=== PATIENT | female | born 1975 | race Caucasian/White ===

== ENCOUNTER 2020-08-21 10:43 | Outpatient (CLI) | payer OTHER, SELFPAY | END 2020-08-21 10:44 | disposition home or self-care (01) | LOC: ANHAUDIO 10:44 | PROVIDERS: PCP Internal Medicine; Visit Provider Otolaryngology | DX: R42 Dizziness and giddiness (principal); H93.12 Tinnitus, left ear; H90.3 Sensorineural hearing loss, bilateral | CPT/HCPCS: 92557; 92567 ==

== ENCOUNTER 2020-08-28 16:58 | Outpatient (CLI) | payer OTHER, SELFPAY ==
--- NOTE | ~2020-08-28 | US_ITS ---
EXAMINATION: US thyroid DATE: 08/28/2020 17:41 INDICATION: Hypothyroidism. TECHNIQUE: Multiple ultrasound images of the thyroid were obtained. COMPARISON: Ultrasound 07/26/2014 FINDINGS: The right thyroid lobe measures 3.9 x 1.2 x 1.3 cm. The left thyroid lobe measures 3.3 x 1.0 x 1.2 c m. The thyroid demonstrates diffusely heterogeneous echogenicity and increased vascularity. No discr ete nodule. IMPRESSION: 1. Heterogeneous, hypervascular thyroid, consistent with chronic lymphocytic (Bandar) thyroiditis. Reviewed, dictated and finalized at location A. 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 Heterogeneous, hypervascular thyroid, consistent with chronic lymphocytic (H ashimoto) thyroiditis.
== END 2020-08-28 16:59 | disposition home or self-care (01) ==
PROVIDERS: PCP Internal Medicine; Visit Provider Nurse Practitioner
DX: E03.9 Hypothyroidism, unspecified (principal)
CPT/HCPCS: 76536

== ENCOUNTER 2020-09-09 14:49 | Outpatient (CLI) | payer OTHER, SELFPAY ==
--- NOTE | ~2020-09-09 | MR_ITS ---
EXAMINATION: MR IAC wo/w con EXAM DATE: 09/09/2020 16:15 INDICATION: Sensory neural hearing loss. TECHNIQUE: Multi-sequential, multiplanar MR images of the brain, brainstem, internal auditory canals were obtained without contrast. Whole brain sagittal T1, axial diffusion, gradient echo (T2*), T1, T 2, FLAIR sequences obtained. High resolution coronal 3-D FIESTA, coronal T1 FSE, axial T1 FSPGR of t he internal auditory canals. Patient was then injected with 10 cc Multihance contrast intravenously. Postcontrast axial and coronal T1 weighted whole brain, axial and coronal high resolution T1 IAC seq uences obtained. Correlation is made to head CT 05/18/2020. FINDINGS: No evidence of mastoid or middle ear opacification. The 7th/8th cranial nerve complexes a re symmetric, normal in course and caliber. No cerebellopontine angle masses. Posterior fossa unrem arkable. There are no areas of restricted diffusion to suggest acute infarction. There is no acute hemorrhage seen on the T2*, a hemosiderin sensitive sequence. No intraparenchymal brain mass. The ventricles a re normal in size. There are no extra-axial collections. Flow voids are seen in the cerebral arteri es on the T2-weighted sequences consistent with their expected patency. The orbits are unremarkable. Soft tissue is unremarkable. There are no areas of abnormal enhancement on the postcontrast image s. IMPRESSION: 1. Unremarkable brain/IAC MRI examination. 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
[2020-09-09 15:25] LABS: Estimated Glomerular Filt Rate > 60
== END 2020-09-09 14:50 | disposition home or self-care (01) ==
PROVIDERS: PCP Internal Medicine; Visit Provider Otolaryngology
DX: H90.5 Unspecified sensorineural hearing loss (principal)
CPT/HCPCS: 70553; A9577

== ENCOUNTER 2020-09-27 11:58 | Outpatient (NON) | payer OTHER, SELFPAY ==
[2020-09-27 14:31] LABS: Influenza Control Positive
[2020-09-28 00:20] LABS: SARS-CoV-2 RNA PCR Negative
== END 2020-09-27 11:59 ==
LOC: ANHCOVIDDT 12:00
PROVIDERS: PCP Internal Medicine; Visit Provider Nurse Practitioner
DX: R05 Cough (principal); Z20.828 Contact with and (suspected) exposure to other viral communicable diseases
CPT/HCPCS: 87635; 87804; C9803; U0003

== ENCOUNTER 2022-04-17 08:09 | Outpatient (CLI) | payer OTHER, SELFPAY ==
--- NOTE | ~2022-04-17 | US_ITS ---
EXAMINATION: US thyroid DATE: 04/17/2022 08:34 INDICATION: Hypothyroidism TECHNIQUE: Multiple ultrasound images of the thyroid were obtained. COMPARISON: None. FINDINGS: The right thyroid lobe measures 3.9 x 1.0 x 1.2 cm. The left thyroid lobe measures 3.3 x 1.1 x 1.2 c m. Diffuse heterogeneous decreased echogenicity with coarsened echotexture and increased vascular fl ow on color Doppler throughout both the left and right thyroid lobes. No discrete thyroid nodules. IMPRESSION: 1. No interval change in a heterogeneous hypervascular thyroid consistent with chronic lymphocytic (H ashimoto) thyroiditis. Reviewed, dictated and finalized at location D. IMPRESSION: 1. No interval change in a heterogeneous hypervascular thyroid consistent with chronic lymphocytic (Bandar) thyroiditis.
== END 2022-04-17 08:10 | disposition home or self-care (01) ==
PROVIDERS: PCP Internal Medicine; Visit Provider Clinical Nurse Specialist
DX: E03.9 Hypothyroidism, unspecified (principal)
CPT/HCPCS: 76536

== ENCOUNTER 2022-09-18 09:25 | Emergency (ER) | payer OTHER, SELFPAY ==
[2022-09-18 09:47] VITALS: BP 119/87; PULSE 101; RESP 20; TEMP 36.4; O2SAT 99
--- NOTE | 2022-09-18 10:07 | ED.URI ---
HPI - URI/Sore Throat General Chief Complaint: Headache Stated Complaint: headache,body aches Time Seen by Provider: 09/18/22 10:21 Source: patient and RN notes reviewed Mode of arrival: ambulatory Limitations: no limitations History of Present Illness HPI Narrative: 47-year-old female presents with concern for headache, body aches, chills, nasal congestion, rhinorrhea, cough. Reports symptoms started on Wednesday night in the middle night. She reports she has been taking Tylenol ibuprofen elicited complaint: other (Headaches, body aches) Related Data Allergies Allergy/AdvReac Type Severity Reaction Status Date / Time hydromorphone AdvReac Intermediate THROAT Verified 09/18/22 10:03 FEELS LIKE ITS SWELLING HYDROCODONE BIT Allergy Unknown VOMITING Uncoded 09/18/22 10:03 Review of Systems Review of Systems: CONSTITUTIONAL: Reports malaise, chills, sweats EYES: Denies visual changes, redness, or discharge. ENT: Reports rhinorrhea, congestion, otalgia and sore throat. CARDIOVASCULAR: Denies chest pain, palpitations, or edema. RESPIRATORY: Reports cough. Denies dyspnea. GASTROINTESTINAL: Denies abdominal pain, nausea, vomiting, diarrhea SKIN: Denies rash or itching. MUSCULOSKELETAL: Reports myalgia. NEUROLOGIC: Reports Headache. All systems reviewed & are unremarkable except as noted in HPI and below PMFSH Past Medical History Medical History delivery delivered x2 Chicken pox Depression HTN (hypertension) Hx of migraine headaches Hypercholesterolemia Hypocalcemia Hypothyroidism, acquired Pericardial cyst Surgical History Surgical History H/O prior ablation treatment H/O tubal ligation 1997 History of robot-assisted laparoscopic hysterectomy Family History Family History Daughter Cerebral palsy Father Heart disease Mother Family history of thyroid problem Social History Social History Smoking packs per day: 1 Smoking cigarettes per day: 20.0 Smoking status: Never smoker Alcohol intake: never Comments At time of signature, agree with nursing past medical, surgical, social and family history. There is no relevant family history pertinent to the presenting complaint Exam Narrative: GENERAL: Well-appearing, well-nourished, and in no acute distress. HEAD: Normocephalic EYES: PERRLA, conjunctivae clear ENT: Nares clear, turbinates edematous and erythematous, clear discharge. Mucous membranes moist. TM pearly oneal with dull light reflex bilaterally; no tragal tenderness. Oropharynx not erythematous without lesions. Tonsils not enlarged and without exudate, no drooling, no hoarseness, no trismus, uvula midline. NECK: Supple. No lymphadenopathy CHEST: Clear to auscultation, breath sounds equal. No wheezing, rhonchi, rales, or stridor. No respiratory distress, speaks in full sentences. HEART: Regular rate and rhythm. No murmur heard. SKIN: Warm, dry, no rash. NEURO: Alert and oriented x3. PSYCH: Normal mood and affect Course Course Emergency Course: Patient is aware of diagnosis, understands and agrees to treatment plan. Anticipatory guidance given. Patient agrees to follow-up as directed and is aware of reasons to seek care at the emergency department. Portions of this record may have been created with voice recognition software Level of Care: Express Care Visit Vital Signs Vital signs: Vital Signs Temperature 97.5 F L 09/18/22 09:47 Pulse Rate 101 H 09/18/22 09:47 Respiratory Rate 20 09/18/22 09:47 Blood Pressure 119/87 09/18/22 09:47 Pulse Oximetry 99 09/18/22 09:47 Temperature 97.5 F L 09/18/22 09:47 Pulse Rate 101 H 09/18/22 09:47 Respiratory Rate 20 09/18/22 09:47 Blood Pressure 119/87 09/18/22 09:47 Pulse Ox
== END 2022-09-18 10:39 | disposition home or self-care (01) ==
PROVIDERS: Emergency Provider Nurse Practitioner; PCP Internal Medicine
DX: U07.1 COVID-19 (principal); I10 Essential (primary) hypertension; E78.00 Pure hypercholesterolemia, unspecified; E03.9 Hypothyroidism, unspecified
CPT/HCPCS: 87426; 87804; 99213; C9803; G0463

== ENCOUNTER 2022-10-07 12:01 | Emergency (ER) | payer OTHER, SELFPAY ==
[2022-10-07 12:09] VITALS: BP 102/86; PULSE 91; RESP 16; TEMP 36.3; O2SAT 100
--- NOTE | 2022-10-07 12:19 | ED.BACK ---
HPI - Back Pain/Injury General Chief Complaint: Back Pain/Injury Stated Complaint: lower back pain Time Seen by Provider: 10/07/22 12:10 Source: patient Mode of arrival: ambulatory Limitations: no limitations History of Present Illness HPI Narrative: Mandy is a 47-year-old female patient presenting to the clinic today with complaints of left mid to upper back pain. She reports she lifted a 40 lb bag of dog food at [employer] while at work 2 days ago and felt as though she strained her back. She states that the pain was worse yesterday so she called off work and also had some diarrhea. States she is having difficulty lifting items with her left hand due to the discomfort. Feels as though she is having spasm Related Data Allergies Allergy/AdvReac Type Severity Reaction Status Date / Time hydromorphone AdvReac Intermediate THROAT Verified 10/07/22 12:33 FEELS LIKE ITS SWELLING HYDROCODONE BIT Allergy Unknown VOMITING Uncoded 10/07/22 12:33 Review of Systems Review of Systems: Pertinent positives per HPI. Patient denies any fever, chills, rash, headache, visual changes, dizziness, cough, runny nose, sore throat, shortness of breath, chest pain, palpitations, nausea, vomiting, diarrhea, constipation, abdominal pain, or any urinary issues. [facility] Past Medical History Medical History delivery delivered x2 Chicken pox Depression HTN (hypertension) Hx of migraine headaches Hypercholesterolemia Hypocalcemia Hypothyroidism, acquired Pericardial cyst Surgical History Surgical History H/O prior ablation treatment H/O tubal ligation 1997 History of robot-assisted laparoscopic hysterectomy Family History Family History Daughter Cerebral palsy Father Heart disease Mother Family history of thyroid problem Social History Social History Smoking packs per day: 1 Smoking cigarettes per day: 20.0 Smoking status: Never smoker Alcohol intake: never Comments At the time of my signature, I reviewed and agree with the nursing past medical, surgical, social, and family history. There is no relevant family history pertinent to the patient complaint. Exam Narrative: General: Well-developed, well nourished, in no apparent distress Head: Normocephalic, atraumatic. Cardio: Regular rate and rhythm, s1 and s2 normal, no murmur appreciated. Resp: Clear to auscultation bilaterally, no rhonchi, rales, wheezing or rubs. Musculoskeletal: No deformity, tender to palpation over the left infraspinatus and rhomboid musculature, has pain over the infraspinatus and rhomboid muscle when lifting arm against resistance, grossly normal range of motion, muscle strength strong and equal, peripheral pulse strong, no edema, no cyanosis, normal gait and station Course Course Emergency Course: Portions of this record may have been created with voice recognition software. Level of Care: Express Care Visit Vital Signs Vital signs: Vital Signs Temperature 36.3 C L 10/07/22 12:09 Pulse Rate 91 10/07/22 12:09 Respiratory Rate 16 10/07/22 12:09 Blood Pressure 102/86 10/07/22 12:09 Pulse Oximetry 100 10/07/22 12:09 Temperature 36.3 C L 10/07/22 12:09 Pulse Rate 91 10/07/22 12:09 Respiratory Rate 16 10/07/22 12:09 Blood Pressure 102/86 10/07/22 12:09 Pulse Oximetry 100 10/07/22 12:09 Vital signs reviewed MDM - Back Pain/Injury MDM Narrative Medical decision making narrative: At the time of visit patient is resting comfortably on the exam table. I suspect patient has a sprain of the infraspinatus and rhomboid musculature on the left. Send in prescription for naproxen and some Flexeril. Supportive measures were discussed with the patie
== END 2022-10-07 12:31 | disposition home or self-care (01) ==
PROVIDERS: Emergency Provider Nurse Practitioner Family; PCP Internal Medicine
DX: S46.812A Strain of other muscles, fascia and tendons at shoulder and upper arm level, left arm, initial encounter (principal); X50.0XXA Overexertion from strenuous movement or load, initial encounter; Y99.0 Civilian activity done for income or pay; F17.210 Nicotine dependence, cigarettes, uncomplicated; I10 Essential (primary) hypertension; E78.00 Pure hypercholesterolemia, unspecified; E03.9 Hypothyroidism, unspecified
CPT/HCPCS: 99213; G0463

== ENCOUNTER → 2023-01-18 11:30 | Outpatient (CLI) | payer OTHER, SELFPAY ==
--- NOTE | ~2023-01-18 | XR_ITS ---
Left Hand Technique: PA, oblique, and lateral views were obtained. Clinical History: Knot below third PIP joint after injury Findings: No acute fracture or dislocation is seen. Osseous alignment is anatomic. Joint spaces are p reserved. Soft tissues are unremarkable. Impression: Unremarkable left hand. Reviewed, dictated and finalized at location . Impression: Unremarkable left hand.
== END ==
PROVIDERS: PCP Internal Medicine; Visit Provider Clinical Nurse Specialist
DX: M79.645 Pain in left finger(s) (principal)
CPT/HCPCS: 73130

== ENCOUNTER 2023-06-16 09:30 | Outpatient (RCR) | payer OTHER, SELFPAY ==
--- NOTE | 2023-06-03 16:46 | OPREHPOC ---
Outpatient Therapy Plan of Care This is a Multidisciplinary Plan of Care that may contain components documented by all disciplines (PT, OT, and ST.) PT Problem 1 PT Problem #1 Knowledge Deficit PT Goal 1 Goal Pt to be IND with issued HEP Target Visit 4 PT Problem 2 PT Problem #2 Pain PT Goal 1 Goal Pt to report pain no greater than 3/10 in the last week Target Visit 4 PT Goal 2 Goal Pt to report 75% improvement in overall symptoms. Target Visit 4 PT Problem 3 PT Problem #3 Impaired Range of Motion PT Goal 1 Goal Pt to demonstrate full active elbow extension to 0 deg Target Visit 4 PT Problem 4 PT Problem #4 Pain PT Goal 1 Goal Pt to report no pain with resisited elbow motion Target Visit 4 PT Problem 5 PT Problem #5 Impaired Functional Mobil PT Goal 1 Goal Pt to demonstrate a 30lb lift and carry utilizing good body mechanics. Target Visit 4
--- NOTE | 2023-06-03 16:46 | PTOPEVAL1 ---
Assessment and note entered by Karan De La Cruz, PT, DPT Evaluation Information Assessment Status Evaluation Diagnosis cervicalgia with radiculopathy Subjective Information Pt is on a thyroid medication and has noticed neck swelling. She also reports anterior arm pains leonila , R > L. 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 She states she has worked at [employer] for just over a year and the pain started shortly after. Reported Pain Level Pain Score 3: Self Report Assessment PT Clinical Summary Mandy presents to therapy today with a diagnosis of cervicalgia with radiculopathy. Today she reports soft tissue edema on her R side in the submandibular region. She also reports pain at her leonila lateral epicondyle R>L. She demonstrates decreased R elbow passive extension and strength when compared to her L side. She demonstrates tenderness to palpation throughout her R elbow. Skilled physical therapy services are indicated to address pain, ROM, and strength deficits, to educate on body mechanics, and to return to PLOF. Plan of Care Interventions Electrical Stimulation,Gait Training,Hot Pack/Cold Pack PT Services Indicated Yes Treatment Frequency and 1-2x/wk for 4 wks Duration These treatments will address the objective and functional deficits as defined above. The patient will be advanced safely and appropriately in order for the patient to progress towards his/her prior level of function. Additional exercises will be introduced and as well as a comprehensive home exercise program upon discharge, if needed, ?to ensure carryover of functional gains achieved in the clinic. This treatment plan has been reviewed and agreement upon by the patient.
--- NOTE | 2023-06-09 10:49 | PCPTNOTE ---
Patient called and left voicemail to cancel appointment. No reason given.
--- NOTE | 2023-06-23 11:16 | PCPTNOTE ---
Pt arrived at clinic and cancelled all of her remaining appts including today and stated she is going a different route .
--- NOTE | 2023-06-23 16:49 | PTOPDC ---
Assessment and note entered by Karan De La Cruz, PT, DPT Evaluation Information Assessment Status Discharge - Pt Not Present Diagnosis cervicalgia with radiculopathy Subjective Information Pt called the clinic today to cancel all of her remaining appointments. Per pt, she went to see her provider who stated that therapy is making her pain worse and she should stop. She will therefore be discharged at this time. Assessment PT Clinical Summary Mandy completed 2 visits of therapy from 06/03/23 to 06/16/23.
== END 2023-06-24 09:22 | disposition home or self-care (01) ==
LOC: ANHGOSHPT 09:30
PROVIDERS: PCP Internal Medicine; Visit Provider Otolaryngology
DX: M54.2 Cervicalgia (principal); M77.8 Other enthesopathies, not elsewhere classified; M25.511 Pain in right shoulder; I10 Essential (primary) hypertension; E78.00 Pure hypercholesterolemia, unspecified; E03.9 Hypothyroidism, unspecified
CPT/HCPCS: 97110; 97112; 97140; 97161

== ENCOUNTER → 2023-06-23 09:00 | Outpatient (CLI) | payer OTHER, SELFPAY ==
--- NOTE | ~2023-06-23 | XR_ITS ---
Right Shoulder Technique: AP and axillary views were obtained. Clinical History: Pain Findings: No fracture or dislocation is seen. Osseous alignment is anatomic. The glenohumeral and acr omioclavicular joint spaces are preserved. Soft tissues are unremarkable. Impression: Unremarkable right shoulder radiographs. Reviewed, dictated and finalized at [facility]. Impression: Unremarkable right shoulder radiographs.
--- NOTE | ~2023-06-23 | XR_ITS ---
Cervical Spine: AP, lateral, open-mouth views Clinical History: Pain Findings: The normal lordotic curve is maintained. The vertebral bodies and posterior elements appea r intact. The intervertebral disc spaces are well maintained. Pre-vertebral soft tissues are unremar kable. Impression: No significant abnormality is seen. Reviewed, dictated and finalized at [facility]. Impression: No significant abnormality is seen.
== END ==
PROVIDERS: PCP Internal Medicine; Visit Provider Clinical Nurse Specialist
DX: M54.2 Cervicalgia (principal); M25.511 Pain in right shoulder
CPT/HCPCS: 72040; 73030

== ENCOUNTER 2023-07-06 08:04 | Outpatient (CLI) | payer OTHER, SELFPAY ==
--- NOTE | ~2023-07-06 | MR_ITS ---
MRI of the cervical spine Clinical History: Radiculopathy Technique: Axial T2-weighted and gradient images, and sagittal T1-weighted, T2-weighted, and STIR pau ges were acquired. Findings: No fracture or subluxation evident. There is straightening of the normal cervical lordosis. No suspicious bone marrow signal abnormality identified. At C2-C3, there is no disc bulge or herniation. No spinal canal stenosis, cord compression, or neural foraminal narrowing. At C3-C4, there is minimal disc bulge. No spinal canal stenosis, cord compression, or neural foramina l narrowing. At C4-C5, there is no significant disc bulge or herniation. No spinal canal stenosis, cord compressio n, or neural foraminal narrowing. At C5-C6, there is no disc bulge or herniation. No spinal canal stenosis, cord compression, or neural foraminal narrowing. At C6-C7, there is minimal disc bulge. There is mild right neural foraminal narrowing. Left neural fo ramen preserved. No central canal stenosis or cord compression. No abnormal signal seen in the spinal cord. Paravertebral soft tissues are unremarkable. Impression: Minimal degenerative change, as above. Reviewed, dictated and finalized at location M. Impression: Minimal degenerative change, as above.
== END 2023-07-06 08:05 ==
PROVIDERS: PCP Internal Medicine; Visit Provider Clinical Nurse Specialist
DX: M54.12 Radiculopathy, cervical region (principal)
CPT/HCPCS: 72141

== ENCOUNTER → 2023-08-26 10:30 | Outpatient (CLI) | payer OTHER, SELFPAY ==
--- NOTE | ~2023-08-26 | MR_ITS ---
EXAMINATION: MR shoulder RT wo con DATE: 08/26/2023 11:26 INDICATION: Pain in right shoulder. TECHNIQUE: Magnetic resonance imaging (MRI) of the right shoulder was performed without intravenous c ontrast. Sequences included axial PD-weighted FS FSE, coronal oblique PD-weighted FS FSE and T2-weigh khushi FS FSE, and sagittal oblique T2-weighted FS FSE and T1-weighted FSE. COMPARISON: Right shoulder radiograph 06/23/2023 FINDINGS: Coracoacromial arch: The acromion undersurface is flat in morphology (type I). There is mild acromioclavicular joint osteo arthritis. There is mild subacromial/subdeltoid bursitis. Rotator cuff: There is mild supraspinatus and infraspinatus tendinopathy. Teres minor tendon is normal. There is mo derate subscapularis tendinopathy. No tear. The rotator cuff muscle bellies are normal. Biceps tendon and glenoid labrum: Biceps tendon is in bicipital groove. Intra-articular biceps tendon is normal. The glenoid labrum is normal. Fluid: There is no glenohumeral joint effusion. Bones/cartilage: Glenoid cartilage is normal. Humeral head cartilage is normal. IMPRESSION: 1. Moderate rotator cuff tendinopathy. No tear. 2. Mild subacromial/subdeltoid bursitis. 3. Mild acromioclavicular joint osteoarthritis. Reviewed, dictated and finalized at location E.
== END ==
PROVIDERS: PCP Anesthesiology Pain Medicine; Visit Provider Anesthesiology Pain Medicine
DX: M19.011 Primary osteoarthritis, right shoulder (principal); M75.51 Bursitis of right shoulder
CPT/HCPCS: 73221

== ENCOUNTER 2023-08-31 05:57 | Day surgery (SDC) | payer OTHER, SELFPAY ==
[2023-08-30 14:58] VITALS: BMI 24.0
--- NOTE | ~2023-08-31 | XR_ITS ---
EXAMINATION: XR fluoroscopy no charge INDICATION: Interlaminar steroid injection TECHNIQUE: Four intraoperative fluoroscopic images are submitted for review. Total fluoroscopic time was 7.3 seconds COMPARISON: None available FINDINGS: Fluoroscopic images demonstrate a needle projecting posteriorly over the lower cervical spi ne. Injected contrast appears to be in the epidural space. IMPRESSION: 1. Please refer to procedure note for full details. 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
--- NOTE | 2023-08-31 04:48 | WPDHPUPDATE1 ---
History and Physical Update Update Date/Time: 08/31/23 04:48 History and Physical has been reviewed, including an updated exam of the patient. There are NO changes in the patient's condition. Risks, benefits, and alternatives have been discussed and questions answered. Patient agrees to proceed with procedure.
[2023-08-31 08:24] VITALS: BP 121/83; PULSE 80; RESP 14; TEMP 37.1; O2SAT 100
[2023-08-31 08:25] VITALS: BP 122/58; PULSE 81; RESP 18; O2SAT 99
[2023-08-31] MEDS: LIDOCAINE HCL 1% PF INJ 5 ML VIAL 2 ML INFILTRATE (08:31)
[2023-08-31 08:34] VITALS: BP 129/79; PULSE 77; RESP 20; O2SAT 100
[2023-08-31] MEDS: BETAMETHASONE SODIUM PHOSPHATE PF INJ 6 MG/ML VIAL INFILTRATE (08:34)
--- NOTE | 2023-08-31 08:37 | W.PM.PROC2 ---
Procedure Note - Detailed Date of Procedure 08/31/23 Pre-op Diagnosis Cervical Radiculopathy Post-op Diagnosis Same Procedure Performed rightward C6-7 interlaminar epidural steroid injection under fluoroscopic guidance with contrast control. Surgeon Ricardo Locke MD Anesthesia Local Description of Procedure INFORMED CONSENT: Risks, benefits and alternatives to the procedure were discussed in detail with the patient who expressed explicit understanding and consent to proceed. Patient was informed verbally and in written form regarding the risks associated with the procedure including the low risk of serious infection, bleeding/bruising, allergic reaction, nerve or organ injury, paralysis, procedural site pain or discomfort, worsening pain and/or mobility, failure to treat and/or disfigurement. The patient expressed explicit understanding and consent to proceed. All materials required for the procedure were available prior to procedure start. Site and side was marked prior to procedure and confirmed in the presence of the patient. PROCEDURE IN DETAIL: The patient was brought to the procedural suite and placed in the prone position. Patient's head was positioned and stabilized with a ProneView pillow or equivalent. Patient was made comfortable with use of pillows under the chest, hips and ankles. Skin overlying the injection site was prepared broadly with ChloraPrep applicator and draped in a sterile manner. Aseptic technique was employed throughout. The endplates of the vertebral body at the site of interest were aligned in the AP view. Slight caudad tilt and ipsilateral oblique angulation was utilized to optimize visualization of the targeted posterior intervertebral foramen at C6-7. Local anesthesia was established by infiltration with approximately 5 mL of 2% lidocaine via a 1-1/2 inch 27-gauge needle. A 20-gauge 4-inch Tuohy epidural needle was advanced intermittently until appropriate loss of resistance to air was identified via plastic loss of resistance syringe. Lateral view was used to confirm the appropriate positioning of the needle tip within the posterior epidural space. In the AP view, 2.0 mL of Omnipaque 300 contrast medium was injected after negative aspiration for CSF, blood or other bodily fluid, showing appropriate epidural spread of contrast without evidence of intravascular or intrathecal placement. After negative repeat aspiration for CSF, blood or other bodily fluid, A 4 mL solution containing 6 mg of betamethasone in sterile PF Normal Saline was injected after negative repeat aspiration. Appropriate spread of the injectate was confirmed with washout of previously injected contrast. No parasthesias were elicited. Needle was removed completely intact without difficulty. Images were saved and documented in the patient chart. Patient's skin was cleansed and sterile bandage applied. The patient tolerated the procedure well. The patient was transported to the recovery area in stable condition where they were observed for an appropriate amount of time prior to discharge, without evidence of complication. The patient was instructed to avoid excessive activity for the next 48 hours, including overhead work, reaching or extended device/computer usage. Showers only for 48 hours. They were instructed not to drive or operate heavy machinery for 24 hours. They are to monitor for severe headaches, fevers, chills, night sweats, erythema/swelling at the site or any other signs of infection, bleeding/bruising, bowel or bladder changes as well as new pain, weakness or numbness in the upper or lower extremity. Should they notice these changes, they are instructed to call our office immediately or report directly to the nearest Emergency Department if no answer or if after posted office hours. EXPOSURE:Time: 7.3sTotal Dose: 0.93 mGy CONTRAST WASTED: 28mL Omnipaque 300. Complications None Condition Stable Disposition PACU [facility] - Charge
[2023-08-31 08:39] VITALS: BP 128/85; PULSE 81; RESP 18; O2SAT 100
== END 2023-08-31 08:51 | disposition home or self-care (01) ==
LOC: ASC 08:01
PROVIDERS: PCP Internal Medicine; Visit Provider Anesthesiology Pain Medicine
PROC: (CPT 62321; principal; 2023-08-31 09:00)
DX: M54.12 Radiculopathy, cervical region (principal)
CPT/HCPCS: 62321; 99199

== ENCOUNTER 2023-09-14 14:59 | Outpatient (CLI) | payer OTHER, SELFPAY ==
[2023-09-14 19:43] LABS: Basophils Absolute Auto 0.1 K/mm3 (0.0-0.1); Basophils Percent Auto 0.7 % (0.2-1.2); Eosinophils Absolute Auto 0.2 K/mm3 (0-0.3); Eosinophils Percent Auto 2.2 % (0-4.4); Hematocrit 44.8 % (37.0-47.0); Hemoglobin 14.6 g/dL (12.0-15.0); Immature Granulocyte Absolute 0.02 K/mm3 (0.00-0.031); Immature Granulocyte Percent A 0.2 % (0-0.5); Lymphocytes Absolute Auto 2.68 K/mm3 (0.9-3.2); Lymphocytes Percent Auto 29.6 % (18.3-44.2); Mean Corpuscular HGB Conc 32.6 g/dl (32-36); Mean Corpuscular Hemoglobin 31.3 pg (26-34); Mean Corpuscular Volume 96.1 fl (80-100); Monocytes Absolute Auto 0.4 K/mm3 (0.1-0.6); Monocytes Percent Auto 4.5 % (2.6-8.5); Neutrophils Absolute Auto 5.7 K/mm3 (1.3-6.7); Neutrophils Percent Auto 62.8 % (45.5-73.1); Platelet Count Result 240 k/mm3 (150-375); Red Blood Count 4.66 M/mm3 (4.2-5.4); Red Cell Distribution Width 12.7 % (11.5-14.5)
[2023-09-14 19:47] LABS: Alanine Aminotransferase 18 U/L (6-35); Albumin Level 4.4 g/dL (3.5-5.1); Alkaline Phosphatase 73 U/L (38-126); Anion Gap 4 mmol/L (8-16); Aspartate Amino Transferase 29 U/L (14-36); Bilirubin,Total 0.6 mg/dL (0.2-1.3); Blood Urea Nitrogen 14 mg/dL (7-17); Calcium 9.8 mg/dL (8.4-10.2); Carbon Dioxide 32 mmol/L (22-30); Chloride 104 mmol/L (98-107); Cholesterol 263 mg/dL (0-200); Estimated Glomerular Filt Rate 53; Glucose 85 mg/dL (65-110); HDL Direct 93 mg/dL; Potassium 4.6 mmol/L (3.4-5.0); Sodium 140 mmol/L (137-145); Triglycerides 86 mg/dL (<150)
[2023-09-14 19:58] LABS: LDL Cholesterol Direct 119 mg/dL
[2023-09-14 20:04] LABS: Free T4 Free Thyroxine 1.36 ng/mL (0.78-2.19); Vitamin D 25 Hydroxy 22.7 ng/mL
== END 2023-09-14 15:00 | disposition home or self-care (01) ==
LOC: ANHGOSHLAB 15:01
PROVIDERS: PCP Internal Medicine; Visit Provider Clinical Nurse Specialist
DX: E06.3 Autoimmune thyroiditis (principal); E78.00 Pure hypercholesterolemia, unspecified; Z13.29 Encounter for screening for other suspected endocrine disorder; E55.9 Vitamin D deficiency, unspecified
CPT/HCPCS: 36415; 80053; 80061; 82306; 84439; 84443; 85025

== ENCOUNTER 2023-12-20 04:04 | Day surgery (SDC) | payer OTHER, SELFPAY ==
[2023-11-25 16:05] VITALS: BMI 24.0
--- NOTE | 2023-12-17 12:17 | SUR.PREOP ---
Patient called regarding upcoming procedure. Voicemail left regarding appointment times.
[2023-12-20 09:46] VITALS: BP 114/74; PULSE 120; RESP 18; TEMP 36.1; O2SAT 100
[2023-12-20] MEDS: LACTATED RINGERS 1,000 ML 150 ML IV CONT (10:00)
--- NOTE | 2023-12-20 10:34 | WPDANESEPPF ---
Anes - Initial Pre Proc Eval Procedure: Operation Date: 12/20/23 11:00 Proposed Procedures p Screening Colonoscopy - Jin Felix MD Date/Time: 12/20/23 10:34 Surgeon: Jin Felix MD Pre Op Diagnosis: neoplasm screening Patient Data Age: 48 Gender: F Height: 1.52 m Weight: 55.1 kg Last Vital Signs Temp 36.1 C L 12/20/23 09:46 Pulse 120 H 12/20/23 09:46 Resp 18 12/20/23 09:46 BP 114/74 12/20/23 09:46 Pulse Ox 100 12/20/23 09:46 O2 Del Method Room Air 12/20/23 09:46 Allergies Allergy/AdvReac Type Severity Reaction Status Date / Time hydromorphone AdvReac Intermediate THROAT Verified 12/20/23 09:45 FEELS LIKE ITS SWELLING HYDROCODONE BIT Allergy Unknown VOMITING Uncoded 12/20/23 09:45 Home Medications Medication Instructions Recorded Confirmed Type levothyroxine 88 mcg tablet 88 mcg PO DAILY #30 tabs 10/26/23 11/25/23 Rx Patient hx anesthesia problems: none Family hx anesthesia problems: none Results Review: All pre-operative results and documents have been reviewed as part of the pre-operative evaluation. [facility], [facility] Past Medical History Medical History delivery delivered x2 Chicken pox Depression HTN (hypertension) Hx of migraine headaches Hypercholesterolemia Hypocalcemia Hypothyroidism, acquired Pericardial cyst Surgical History Surgical History H/O prior ablation treatment H/O tubal ligation 1997 History of robot-assisted laparoscopic hysterectomy Family History Family History Daughter Cerebral palsy Father Heart disease Mother Family history of thyroid problem Social History Social History Smoking packs per day: 1 Smoking cigarettes per day: 20.0 Years smoked: 30 Smoking pack-years: 30.00 Smoking status: Current every day smoker Tobacco type: cigarettes Second hand tobacco smoke exposure: Yes Alcohol intake: current Substance use type: does not use Lack of Transportation: No Lack of Food: Never True Current Housing: I Have Housing Concerned About Future Housing: No Difficulty Paying Gas/Electric Bills: No Difficulty Paying for Meds: No Currently Unemployed: No Education: Associate Degree Difficulty w/ Childcare or Family Care: No Living arrangements: with family Spiritual care concerns: No Anes - Eval Final PreProcedure Day of Procedure 12/20/23 10:34 Patient weight: normal Heart: regular rate and rhythm Lungs: clear to auscultation Airway: Mallampati scale class II Neurological: alert and oriented Last oral intake: >/= 8 hours ASA classification: III Emergent: no Anesthetic plan: proceed Anesthesia type and monitoring: general GIVS and standard monitoring Results Review: All pre-operative results and documents have been reviewed as part of the pre-operative evaluation. Informed Consent: The patient's anesthetic plan and its attendant risks and benefits were discussed with the patient/family/POA. Questions were solicited and answers provided to the satisfaction of the patient/family/POA.
--- NOTE | 2023-12-20 10:51 | PM.HPGS ---
History of Present Illness History of Present Illness Consent: Risks, benefits, and alternatives have been discussed and questions answered. Patient agrees to proceed with procedure. Chief complaint: neoplasm screening Narrative: Mandy Antonio is a 48 year old female with colon polyp 5 years ago Review of Systems Constitutional: Constitutional: Denies headache(s) and Denies weakness Eyes: Eyes: Denies blurry vision ENT: Reports Normal hearing present, Denies headache(s) and Denies neck pain Cardiovascular: Cardiovascular: Denies chest pain and Denies dyspnea Respiratory: Respiratory: Denies dyspnea Gastrointestinal: Gastrointestinal: Reports no additional gastrointestinal complaints Genitourinary: Genitourinary: Denies dysuria Musculoskeletal: Musculoskeletal: Denies neck pain Integumentary/Breasts: Skin/Breast: Denies dry skin Neurologic: Reports Normal hearing present, Denies headache(s) and Denies weakness Psychiatric: Psychiatric: Denies anxiety Endocrine: Endocrine: Denies change in body appearance Hematologic/Lymphatic: Hematologic/Lymphatic: Denies easy bleeding Allergic/Immunologic: Allergic/Immunologic: Denies urticaria PMFSH Past Medical History Medical History (Updated 12/20/23 @ 10:52 by Jin Felix MD) delivery delivered x2 Chicken pox Colon polyp Depression HTN (hypertension) Hx of migraine headaches Hypercholesterolemia Hypocalcemia Hypothyroidism, acquired Pericardial cyst Surgical History Surgical History H/O prior ablation treatment H/O tubal ligation 1997 History of robot-assisted laparoscopic hysterectomy Family History Family History Daughter Cerebral palsy Father Heart disease Mother Family history of thyroid problem Social History Social History Smoking packs per day: 1 Smoking cigarettes per day: 20.0 Years smoked: 30 Smoking pack-years: 30.00 Smoking status: Current every day smoker Tobacco type: cigarettes Second hand tobacco smoke exposure: Yes Alcohol intake: current Substance use type: does not use Lack of Transportation: No Lack of Food: Never True Current Housing: I Have Housing Concerned About Future Housing: No Difficulty Paying Gas/Electric Bills: No Difficulty Paying for Meds: No Currently Unemployed: No Education: Associate Degree Difficulty w/ Childcare or Family Care: No Living arrangements: with family Spiritual care concerns: No Meds Home Medications and Allergies Home Medications Medication Instructions Recorded Confirmed Type levothyroxine 88 mcg tablet 88 mcg PO DAILY #30 tabs 10/26/23 11/25/23 Rx Allergies Allergy/AdvReac Type Severity Reaction Status Date / Time hydromorphone AdvReac Intermediate THROAT Verified 12/20/23 09:45 FEELS LIKE ITS SWELLING HYDROCODONE BIT Allergy Unknown VOMITING Uncoded 12/20/23 09:45 Vital Signs Vital Signs - 24 hr 12/20/23 09:46 Temperature 97 F L Pulse Rate 120 H Respiratory Rate 18 Blood Pressure 114/74 Pulse Oximetry 100 Oxygen Delivery Room Air Exam Const: General: comfortable and no acute distress HENMT: Face/Nose/Sinus: Normal nares present Eyes: General: appearance normal, both eyes and all related structures Neck: Neck: no JVD Resp: Auscultation: clear to auscultation bilaterally Cardio: Rate: regular rate Rhythm: regular rhythm GI: Inspection: non-distended GI Palp: Yes Soft to palpation Skin: General skin exam: normal color Neuro: General: gait normal Speech: normal speech Extrem: General: normal to inspection Psych: Mental Status: mental status grossly normal Assessment and Plan Assessment and plan (1) Colon polyp: Code(s): K63.5 - Polyp of colon Status: Acute
[2023-12-20 11:11] VITALS: BP 105/70; PULSE 76; RESP 18; O2SAT 100
[2023-12-20 11:21] VITALS: BP 109/71; PULSE 77; RESP 18; O2SAT 100
[2023-12-20 11:31] VITALS: BP 111/75; PULSE 81; RESP 18; O2SAT 100
== END 2023-12-20 11:40 | disposition home or self-care (01) ==
PROVIDERS: PCP Internal Medicine; Visit Provider Internal Medicine Gastroenterology
PROC: 0DJD8ZZ Inspection of Lower Intestinal Tract, Via Natural or Artificial Opening Endoscopic (ICD-10-PCS; CPT 45378; principal; 2023-12-20 11:00)
DX: Z12.11 Encounter for screening for malignant neoplasm of colon (principal); K63.5 Polyp of colon; K64.8 Other hemorrhoids; I10 Essential (primary) hypertension; E78.00 Pure hypercholesterolemia, unspecified; E83.51 Hypocalcemia; E03.9 Hypothyroidism, unspecified; F32.A Depression, unspecified; F17.210 Nicotine dependence, cigarettes, uncomplicated; Z98.890 Other specified postprocedural states; Z86.010 Personal history of colon polyps; Z82.49 Family history of ischemic heart disease and other diseases of the circulatory system
CPT/HCPCS: 45385; 88305; J2704; J7120

== ENCOUNTER 2024-01-17 09:25 | Outpatient (CLI) | payer OTHER, SELFPAY ==
[2024-01-17 14:31] LABS: Thyroid Stimulating Hormone 0.271 uIU/mL (0.465-4.680)
[2024-01-17 15:03] LABS: Free T4 Free Thyroxine 1.46 ng/mL (0.78-2.19); Vitamin D 25 Hydroxy 54.1 ng/mL
== END 2024-01-17 09:26 | disposition home or self-care (01) ==
LOC: ANHGOSHLAB 09:27
PROVIDERS: PCP Internal Medicine; Visit Provider Clinical Nurse Specialist
DX: E06.3 Autoimmune thyroiditis (principal); E55.9 Vitamin D deficiency, unspecified
CPT/HCPCS: 36415; 82306; 84439; 84443

== ENCOUNTER 2024-01-25 14:29 | Outpatient (CLI) | payer OTHER, SELFPAY ==
--- NOTE | ~2024-01-25 | MM_ITS ---
EXAMINATION: MM screening seema BI w evans HISTORY: Screening TECHNIQUE: Craniocaudal and mediolateral oblique 3-D tomosynthesis images were obtained and synthetic 2-D images were generated. CAD analysis was submitted and interpreted. COMPARISON: No prior mammogram is available for comparison at this institution. BREAST PARENCHYMAL COMPOSITION: Dense: The breasts are heterogeneously dense, which may obscure small masses FINDINGS: There is no mammographic evidence for malignancy in the right breast. There is focal asymme try in the upper outer quadrant of the left breast posteriorly. IMPRESSION: 1. Focal left breast asymmetry, upper outer quadrant. 2. Additional mammographic views and possible breast ultrasound are recommended. BI-RADS Category 0: Incomplete: Needs additional imaging evaluation. Reviewed, dictated and finalized at location A. IMPRESSION: 1. Focal left breast asymmetry, upper outer quadrant. 2. Additional mammographic views and possible breast ultrasound are recommended . BI-RADS Category 0: Incomplete: Needs additional imaging evaluation.
== END 2024-01-25 14:30 ==
LOC: MICIMG 14:30
PROVIDERS: PCP Clinical Nurse Specialist; Visit Provider Clinical Nurse Specialist
DX: Z12.31 Encounter for screening mammogram for malignant neoplasm of breast (principal); R92.8 Other abnormal and inconclusive findings on diagnostic imaging of breast
CPT/HCPCS: 77063; 77067

== ENCOUNTER 2024-02-25 08:40 | Outpatient (CLI) | payer OTHER, SELFPAY ==
--- NOTE | ~2024-02-25 | MMUS_ITS ---
EXAMINATION: MM diagnostic seema LT w evans, US breast LT limited HISTORY: Focal upper outer quadrant left breast mammographic asymmetry TECHNIQUE: Additional 3-D tomosynthesis images of the left breast were performed and synthetic 2-D im ages were generated. CAD analysis was submitted and interpreted. High resolution upper outer quadrant left breast ultrasound was performed. COMPARISON: January 25, 2024 bilateral screening mammogram 06/23/2010 diagnostic left mammogram 03/07/2010 diagnostic bilateral mammogram FINDINGS: MAMMOGRAPHIC FINDINGS: Possible approximately 6 mm partially circumscribed mass is suggested in the posterior upper outer le ft breast (ML tomosynthesis image 24/76, cone compression craniocaudal tomosynthesis image 34/76). ULTRASOUND: Corresponding to the mammographic mass in the posterior upper-outer quadrant is in irregular hypoecho ic solid lesion at 1-2:00 10 cm from nipple measuring approximately 4.5 x 7.1 x 8.3 mm. No internal v ascularity is detected. Mild ultrasound beam attenuation and posterior shadowing is suggested. Due pa rticularly to the irregular margins, ultrasound guided biopsy is recommended. IMPRESSION: 1. Irregular 8.3 mm solid mass in the posterior upper outer quadrant of the left breast at 1-2:00 10 cm from the nipple 2. Ultrasound guided biopsy of the left 1-2:00 lesion is recommended BI-RADS category 4, suspicious findings. Dr. Chiang telephoned the report and ultrasound-guided biopsy recommendation for the left 1-2:00 lesion on February 25, 2024 at 1003 hours to [facility] voicemail at [phone]. Reviewed, dictated and finalized at location A. IMPRESSION: 1. Irregular 8.3 mm solid mass in the posterior upper outer quadrant of the lef t breast at 1-2:00 10 cm from the nipple 2. Ultrasound guided biopsy of the left 1-2:00 lesion is recommended BI-RADS category 4, suspicious findings. Dr. Chiang telephoned the report and ultrasound-guided biopsy recommendation for the left 1-2:00 lesion on February 25, 2024 at 1003 hours to [facility] voicemail at [phone]. IMPRESSION: 1. Irregular 8.3 mm solid mass in the posterior upper outer quadrant of the lef t breast at 1-2:00 10 cm from the nipple 2. Ultrasound guided biopsy of the left 1-2:00 lesion is recommended BI-RADS category 4, suspicious findings. Dr. Chiang telephoned the report and ultrasound-guided biopsy recommendation for the left 1-2:00 lesion on February 25, 2024 at 1003 hours to [facility] voicemail at [phone].
== END 2024-02-25 08:41 ==
LOC: MICIMG 08:41
PROVIDERS: PCP Clinical Nurse Specialist; Visit Provider Clinical Nurse Specialist
DX: R92.8 Other abnormal and inconclusive findings on diagnostic imaging of breast (principal)
CPT/HCPCS: 76642; 77061; 77065; G0279

== ENCOUNTER 2024-03-01 09:29 | Outpatient (CLI) | payer SELFPAY ==
[2024-03-01 21:11] LABS: Alanine Aminotransferase 14 U/L (6-35); Albumin Level 4.2 g/dL (3.5-5.1); Alkaline Phosphatase 65 U/L (38-126); Aspartate Amino Transferase 33 U/L (14-36); Bilirubin,Total 0.5 mg/dL (0.2-1.3)
[2024-03-01 22:35] LABS: Free T4 Free Thyroxine 1.52 ng/mL (0.78-2.19)
[2024-03-02 10:33] LABS: Triiodothyronine T3 Free 2.9 pg/mL (2.3-4.2)
== END 2024-03-01 09:30 | disposition home or self-care (01) ==
LOC: ANHGOSHLAB 09:31
PROVIDERS: PCP Clinical Nurse Specialist; Visit Provider Clinical Nurse Specialist
DX: B35.1 Tinea unguium (principal); E06.3 Autoimmune thyroiditis
CPT/HCPCS: 36415; 80076; 84439; 84443; 84481

== ENCOUNTER 2024-04-14 08:26 | Outpatient (CLI) | payer BC, SELFPAY ==
--- NOTE | ~2024-04-14 | MMUS_ITS ---
MM post biopsy diagnostic LT, US breast biopsy LT w image EXAMINATION: US GUIDED NEEDLE BIOPSY WITH VACUUM ASSISTANCE DATE: 04/14/2024 10:40 CDT INDICATION: Left breast mass seen on prior examination. Ultrasound-guided core biopsy is requested t o evaluate for malignancy. TECHNIQUE AND FINDINGS: The risks and potential benefits of the procedure were discussed with the patient, and written inform ed consent was obtained. After sterile preparation of the left breast, 1% lidocaine was utilized for local anesthesia. 1% lidocaine with epinephrine was used for deep anesthesia. A 10G vacuum-assisted biopsy gun needle was advanced through to the outer edge of the region of inter est from a lateral approach utilizing sonographic guidance. A total of 4 tissue core samples were ob tained through the lesion. An Inrad tissue marker clip was then placed at the biopsy site. Hemostasi s was achieved. The patient tolerated procedure well and there was no evidence of immediate complication. The patien t was given verbal instructions partly is from the department. Left breast mammograms to document ti ssue marker clip placement. The tissue samples were submitted to surgical pathology for histologic an alysis. IMPRESSION: 1. Successful ultrasound-guided vacuum-assisted biopsy of left breast mass with tissue marker placem ent. Please refer to pathology report for histologic analysis. Reviewed, dictated and finalized at location B. IMPRESSION: 1. Successful ultrasound-guided vacuum-assisted biopsy of left breast mass wit h tissue marker placement. Please refer to pathology report for histologic anal ysis.
== END 2024-04-14 08:27 | disposition home or self-care (01) ==
PROVIDERS: PCP Clinical Nurse Specialist; Visit Provider Clinical Nurse Specialist
DX: N63.20 Unspecified lump in the left breast, unspecified quadrant (principal); R92.8 Other abnormal and inconclusive findings on diagnostic imaging of breast
CPT/HCPCS: 19083; 77065; 88305

== ENCOUNTER 2025-05-02 08:56 | Outpatient (CLI) | payer BC, SELFPAY ==
--- OUTSIDE RECORDS SUMMARY | 2025-05-02 09:02 | XMS_ITS | Clinical Summary ---
Author Organization [facility] Address [address] [place] [address] Care Team Providers Care Belt Measurer Name Role Phone Jorge Khan DO Primary Care Provider Source Comments [facility],non-owned Affiliates and Associated Physician Practices is amultiple site organization consisting of ambulatory clinics and hospital sitesin [place], [place], [place] and [place]. This disclosure is being madepursuant to the Care Everywhere program and may not contain all information available regarding this patient. Last updated 18.[facility] Allergies Active Allergy Reactions Criticality Noted Date Comments Hydrocodone Diarrhea,Nausea and/or Vomiting Medications * Be aware that medications may not be up to date on this document. Alwaysverify current medications with the patient. buPROPion SR 12hr (WELLBUTRIN-SR) 150 MG tablet Take 150 mg by mouth once daily 0 8 Active levothyroxine (SYNTHROID) 75 MCG tablet Take 75 mcg by mouth once daily 2 8 Active azelastine (OPTIVAR) 0.05 % ophthalmic solutionIndicati ons:Rhinitis, unspecified type Instill 1 drop into both eyes 2 times daily as needed (red, itchy watery eyes) 1 bottles 4 8 Active Additional Information Patient not taking.Reported on 05/20/2018 triamcinolone (NASACORT AQ) 55 MCG/ACT nasal inhalerIndicatio ns:Rhinitis, unspecified type [place] 2 sprays into each nostril once daily 1 Inhaler 4 8 Active albuterol HFA (VENTOLIN HFA) 108 (90 BASE) MCG/ACT inhalerIndicatio ns:Cough Inhale 2 puffs by mouth every 6 hours as needed for Shortness of Breath, Wheezing or Cough (5-15 minutes prior to exercise) 1 Inhaler 5 8 Active Active Problems Problem Noted Date Diagnosed Date 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/20/2018 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 Seborrheic keratosis 05/20/2018 GERD (gastroesophageal reflux disease) 8 Smoker 03/16/2018 Hypothyroidism 03/15/2018 Migraine headache Hypertension Family History Medical History Relation Name Comments Other Daughter cerebral palsy CAD (Coronary Artery Disease) Father Thyroid Disease Mother Asthma Neg Hx CVA Neg Hx Cancer - Breast Neg Hx Cancer - Other Neg Hx Cancer - Skin, Melanoma Neg Hx Cancer - Skin, Non Melanoma Neg Hx Eczema Neg Hx Hemophilia Neg Hx Psoriasis Neg Hx Relation Name Status Comments Daughter Father Mother Social History Tobacco Use Types Packs/Day Years Used Date Smoking Tobacco: Every Day Cigarettes Smokeless Tobacco: Current Alcohol Use Standard Drinks/Week Comments No 0 (1 standard drink = 0.6 oz pur e alcohol) Comments Unknown Sex and Gender Information Value Date Recorded Sex Assigned at Not on file Legal Sex Female 5:57 PM CDT Gender Identity Not on file Sexual Orientation Not on file Last Filed Vital Signs Vital Sign Reading Time Taken Comments Blood Pressure 110/60 03/24/2018 1:11 PM CDT Pulse 92 03/24/2018 1:11 PM CDT Temperature 36.7 C (98.1 F) 03/16/2018 12:48 PM CDT Respiratory Rate - - Oxygen Saturation 98% 03/24/2018 1:11 PM CDT Inhaled Oxygen Concentration - - Weight 59.9 kg (132 lb) 03/24/2018 1:11 PM CDT Height 152.4 cm (5') 03/24/2018 1:11 PM CDT Body Mass Index 25.78 03/24/2018 1:11 PM CDT Plan of Treatment Health Maintenance Due Date Last Done Comments COLOGUARD (AGES 45-75) - COL ON CA SCREENING 1977 COLON MONITORING 1977 COLONOSCOPY - COLON CA SCREENING 1977 CT COLONOGRAPHY - COLON CA SCREENING 1977 Colorectal Cancer Screening 1977 FIT - COLON CA SCREENING 1977 FLEX SIG - COLON CA SCREENING 1977 LIPID TESTING 1977 MAMMOGRAM 1977 HIV SCREENING 1992 HEPATITIS C SCREENING 08/05/1995 DTAP/TDAP/TD VACCINES (1 - Tdap) 1996 HEPATITIS B VACCINE (1 of 3 - 19+ 3-dose series) 1996 PNEUMOCOCCAL VACCINE (1 of 2 - PCV) 1996 PAP SMEAR 1998 SCREENING FOR DIABETES 03/16/2018 COVID-19 VACCINE (1 - 2023-2 5 season) 2024 DEPRESSION SCREENING 10/25/2024 INFLUENZA VACCINE (#1) 2025 ZOSTER VACCINE (1 of 2) 2027 HIB VACCINE Aged Out No longer eligi ble based on patient's age to complete this topic HPV VACCINE Aged Out No longer eligi ble based on patient's age to complete this topic MENINGOCOCCAL (Group B) VACC INE SHARED DECISION-MAKING Aged Out No longer eligibl e based on patient's age to complete this topic MENINGOCOCCAL GROUPS A/C/Y/W VACCINE Aged Out No longer eligible b ased on patient's age to complete this topic Insurance [address] [place] [address] SELF PAY NO INSURANCE Member Subscriber Plan / Payer (Ef fective for All Dates) Name:Mandy Callaway Member ID:Not on file Relation to Subscriber:Not on file Name:MANDY DHILLON Subscriber ID:Not on file Address: [address] [place] [phone] Payer ID:Not on file Group ID:Not on file Type:Self Pay Address: [place], [place] Member Subscriber Plan / Payer (Ef fective for All Dates) Name:Mandy Callaway Member ID:Not on file Relation to Subscriber:Not on file Name:MANDY DHILLON Subscriber ID:Not on file Address: [address] [place] [address] Payer ID:Not on file Group ID:Not on file Type:Self Pay Address: [place], [place] SELF PAY NO INSURANCE Member Subscriber Plan / Payer (Ef fective for All Dates) Name:Mandy Callaway Member ID:Not on file Relation to Subscriber:Not on file Name:MANDY DHILLON Subscriber ID:Not on file Address: [address] [place] [address] Payer ID:Not on file Group ID:Not on file Type:Self Pay Address: [place], [place] * Guarantor: MANDY CALLAWAY Account Type Relation to Patient Date of Phone Billing Address Personal/Family [address] [place] [address] SELF PAY NO INSURANCE Member Subscriber Plan / Payer (Ef fective for All Dates) Name:Mandy Callaway Member ID:Not on file Relation to Subscriber:Not on file Name:MANDY CALLAWAY Subscriber ID:Not on file Address: [address] [place] [phone] Payer ID:Not on file Group ID:Not on file Type:Self Pay Address: [place], [place] Member Subscriber Plan / Payer (Ef fective for All Dates) Name:Mandy Callaway Relation to Subscriber:Spouse Name:Oleg Callaway Date of :1961 Address: [address] [place] [address] Payer ID:[id number] (NAIC) Type:PPO Address: [id number] * Guarantor: MANDY CALLAWAY Account Type Relation to Patient Date of Phone Billing Address Personal/Family [address] [place] [phone] SELF PAY NO INSURANCE Member Subscriber Plan / Payer (Ef fective for All Dates) Name:Mandy Callaway Member ID:Not on file Relation to Subscriber:Not on file Name:MANDY CALLAWAY Subscriber ID:Not on file Address: [address] [place] [phone] Payer ID:Not on file Group ID:Not on file Type:Self Pay Address: [facility] * Guarantor: MANDY CALLAWAY Account Type Relation to Patient Date of Phone Billing Address Personal/Family [address] [place] [phone] SELF PAY NO INSURANCE Member Subscriber Plan / Payer (Ef fective for All Dates) Name:Mandy Callaway Member ID:Not on file Relation to Subscriber:Not on file Name:MANDY CALLAWAY Subscriber ID:Not on file Address: [address] [place] [phone] Payer ID:Not on file Group ID:Not on file Type:Self Pay Address: [facility] Care Teams Belt Measurer Relationship Specialty Start Date End Date Jorge Khan DO PCP - General 02/22/18
[2025-05-02 19:26] LABS: Hematocrit 41.7 % (37.0-47.0); Hemoglobin 13.8 g/dL (12.0-15.0); Immature Granulocyte Percent A 0.2 % (0-0.5); Lymphocytes Absolute Auto 2.74 K/mm3 (0.9-3.2); Mean Corpuscular HGB Conc 33.1 g/dl (32-36); Mean Corpuscular Hemoglobin 31.2 pg (26-34); Mean Corpuscular Volume 94.3 fl (80-100); Nucleated Red Blood Cells Absolute Auto 0.000 K/mm3 (0.0-0.012); Nucleated Red Blood Cells Perc 0.0 % (0.0-0.2); Platelet Count Result 223 k/mm3 (150-375); Red Blood Count 4.42 M/mm3 (4.2-5.4); White Blood Count 6.2 K/mm3 (4.5-10.0)
[2025-05-02 21:25] LABS: Alanine Aminotransferase 14 U/L (6-35); Albumin Level 4.0 g/dL (3.5-5.1); Alkaline Phosphatase 69 U/L (38-126); Anion Gap 7 mmol/L (4-12); Aspartate Amino Transferase 28 U/L (14-36); Bilirubin,Total 0.3 mg/dL (0.2-1.3); Blood Urea Nitrogen 14 mg/dL (7-17); Calcium 9.1 mg/dL (8.4-10.2); Carbon Dioxide 24 mmol/L (22-30); Chloride 109 mmol/L (98-107); Cholesterol 229 mg/dL (0-200); Estimated Glomerular Filt Rate 59; Glucose 93 mg/dL (65-110); HDL Direct 68 mg/dL; Potassium 4.4 mmol/L (3.4-5.0); Sodium 140 mmol/L (137-145); Total Protein 7.2 g/dL (6.3-8.2); Triglycerides 88 mg/dL (<150)
[2025-05-02 21:56] LABS: Thyroid Stimulating Hormone 0.794 uIU/mL (0.465-4.680)
== END 2025-05-02 08:57 | disposition home or self-care (01) ==
LOC: ANHGOSHLAB 08:58
PROVIDERS: PCP Internal Medicine; Visit Provider Nurse Practitioner
DX: E78.00 Pure hypercholesterolemia, unspecified (principal); I10 Essential (primary) hypertension; E03.9 Hypothyroidism, unspecified; E55.9 Vitamin D deficiency, unspecified; Z13.29 Encounter for screening for other suspected endocrine disorder
CPT/HCPCS: 36415; 80053; 80061; 82306; 84443; 85025

== ENCOUNTER 2025-07-02 11:04 | Outpatient (CLI) | payer BC, SELFPAY ==
--- NOTE | ~2025-07-02 | MR_ITS ---
EXAMINATION: MR cervical spine wo con DATE: 07/02/2025 11:37 INDICATION: Radiculopathy, cervical region. TECHNIQUE: Magnetic resonance imaging (MRI) of the cervical spine was performed without intravenous contrast. COMPARISON: MRI cervical spine 07/06/2023 FINDINGS: There is 4 degrees dextrocurvature of cervical spine. Vertebral body heights are normal. Intervertebral disc heights are normal. The spinal cord signal intensity is normal. The following disc levels are specifically discussed: C2-C3: The disc does not extend beyond the endplate margin. There is mild left uncovertebral joint osteoarthritis. There is mild bilateral facet joint osteoarthritis. There is no neural foraminal stenosis. There is no central canal stenosis. C3-C4: The disc does not extend beyond the endplate margin. There is mild left uncovertebral joint osteoarthritis. There is mild bilateral facet joint osteoarthritis. There is no neural foraminal stenosis. There is no central canal stenosis. C4-C5: The disc does not extend beyond the endplate margin. There is mild bilateral uncovertebral joint osteoarthritis. There is moderate bilateral facet joint osteoarthritis. There is mild right neural foraminal stenosis. There is no central canal stenosis. C5-C6: The disc does not extend beyond the endplate margin. There is moderate bilateral uncovertebral joint osteoarthritis. There is moderate bilateral facet joint osteoarthritis. There is mild bilateral neural foraminal stenosis. There is no central canal stenosis. C6-C7: The disc is bulging. There is moderate bilateral uncovertebral joint osteoarthritis. There is mild bilateral facet joint osteoarthritis. There is moderate right and mild left neural foraminal stenosis. There is mild central canal stenosis. C7-T1: The disc does not extend beyond the endplate margin. There is no uncovertebral joint osteoarthritis. There is mild bilateral facet joint osteoarthritis. There is mild bilateral neural foraminal stenosis. There is no central canal stenosis. IMPRESSION: 1. Moderate right neural foraminal stenosis at C6-C7, stable from 07/06/2023. Otherwise mild cervical spondylosis. Reviewed, dictated and finalized at location E. IMPRESSION: 1. Moderate right neural foraminal stenosis at C6-C7, stable from 07/06/2023. Ot herwise mild cervical spondylosis.
--- NOTE | ~2025-07-02 | XR_ITS ---
XR shoulder LT min 2V 07/02/2025 11:55 INDICATION: Left shoulder pain PROCEDURE: 4 views left shoulder COMPARISON: No prior studies FINDINGS: Fracture, dislocation or subluxation is not identified. The soft tissues appear within normal limits. No foreign bodies are identified. IMPRESSION: 1: NO ACUTE BONE OR JOINT ABNORMALITY IDENTIFIED. Reviewed, dictated and finalized at location O.
--- NOTE | ~2025-07-02 | XR_ITS ---
XR shoulder RT min 2V 07/02/2025 11:55 INDICATION: Right shoulder pain for one year PROCEDURE: 4 views right shoulder COMPARISON: No prior studies for comparison. FINDINGS: Fracture, dislocation or subluxation is not identified. The soft tissues appear within normal limits. No foreign bodies are identified. IMPRESSION: 1: No significant bone or joint abnormality. Reviewed, dictated and finalized at location O.
== END 2025-07-02 11:05 | disposition home or self-care (01) ==
LOC: GOSHIMG 11:05
PROVIDERS: PCP Nurse Practitioner Adult Health; Visit Provider Nurse Practitioner Adult Health
DX: M25.511 Pain in right shoulder (principal); M25.512 Pain in left shoulder; M47.22 Other spondylosis with radiculopathy, cervical region
CPT/HCPCS: 72141; 73030

== ENCOUNTER 2025-08-21 09:42 | Outpatient (CLI) | payer BC, SELFPAY ==
--- NOTE | 2025-08-21 11:45 | NEURO_ITS ---
Impression: # Complains of numbness of hands. ? # Normal Nerve Conduction Study. ? # No Carpal Tunnel Syndrome or ulnar neuropathy. ? # Normal needle/EMG exam. ? # Clinical correlation recommended. Nerve Conduction Studies ?Stim Site NR Peak (ms) P-T Amp (?V) Site1 Site2 Delta-P (ms) Dist (cm) Timmy (m/s) Left Median Anti Sensory (2-3nd Digit) Wrist ? 2.5 70.5 Wrist 2-3nd Digit 2.5 14.0 56 Wrist ? 2.6 64.2 Wrist 2-3nd Digit 2.5 14.0 56 Right Median Anti Sensory (2-3nd Digit) Wrist ? 2.3 65.5 Wrist 2-3nd Digit 2.3 14.0 61 Wrist ? 2.3 63.2 Wrist 2-3nd Digit 2.3 14.0 61 Left Radial Anti Sensory (Base 1st Digit) Wrist ? 1.8 34.6 Wrist Base 1st Digit 1.8 0.0 Right Radial Anti Sensory (Base 1st Digit) Wrist ? 2.0 40.7 Wrist Base 1st Digit 2.0 0.0 Left Ulnar Anti Sensory (5th Digit) Wrist ? 2.5 67.9 Wrist 5th Digit 2.5 14.0 56 Right Ulnar Anti Sensory (5th Digit) Wrist ? 2.2 61.9 Wrist 5th Digit 2.2 14.0 64 ?Stim Site NR Onset (ms) O-P Amp (mV) Site1 Site2 Delta-0 (ms) Dist (cm) Timmy (m/s) Left Median Motor (Abd Poll Brev) Wrist ? 3.1 6.8 Elbow Wrist 4.3 26.0 60 Elbow ? 7.4 7.3 Right Median Motor (Abd Poll Brev) Wrist ? 2.4 4.2 Elbow Wrist 4.4 26.0 59 Elbow ? 6.8 6.5 Left Ulnar Motor (Abd Dig Minimi) Wrist ? 2.2 10.7 A Elbow Wrist 4.2 26.0 62 A Elbow ? 6.4 8.2 B Elbow Wrist 3.2 20.0 63 B Elbow ? 5.4 6.1 Right Ulnar Motor (Abd Dig Minimi) Wrist ? 2.3 9.7 A Elbow Wrist 4.1 26.0 63 A Elbow ? 6.4 9.6 B Elbow Wrist 3.1 19.0 61 B Elbow ? 5.4 7.1 F Wave Studies ?NR F-Lat (ms) L-R F-Lat (ms) Left Median (Mrkrs) (Abd Poll Brev) ? 23.53 0.48 Right Median (Mrkrs) (Abd Poll Brev) ? 23.05 0.48 Left Ulnar (Mrkrs) (Abd Dig Min) ? 23.67 0.08 Right Ulnar (Mrkrs) (Abd Dig Min) ? 23.75 0.08 Electromyography ?Side Muscle Nerve Root Ins Act Fibs Amp Dur Recrt Comment Right 1stDorInt Ulnar C8-T1 Nml Nml Nml Nml Nml Right Ext Indicis Radial (Post Int) C7-8 Nml Nml Nml Nml Nml Right Ext Digitorum Radial (Post Int) C7-8 Nml Nml Nml Nml Nml Right BrachioRad Radial C5-6 Nml Nml Nml Nml Nml Right PronatorTeres Median C6-7 Nml Nml Nml Nml Nml Right Abd Poll Brev Median C8-T1 Nml Nml Nml Nml Nml Right ABD Dig Min Ulnar C8-T1 Nml Nml Nml Nml Nml Right FlexPolLong Median (Ant Int) C7-8 Nml Nml Nml Nml Nml Right Abd Poll Long Radial (Post Int) C7-8 Nml Nml Nml Nml Nml Left 1stDorInt Ulnar C8-T1 Nml Nml Nml Nml Nml Left Ext Indicis Radial (Post Int) C7-8 Nml Nml Nml Nml Nml Left Ext Digitorum Radial (Post Int) C7-8 Nml Nml Nml Nml Nml Left BrachioRad Radial C5-6 Nml Nml Nml Nml Nml Left PronatorTeres Median C6-7 Nml Nml Nml Nml Nml Left Abd Poll Brev Median C8-T1 Nml Nml Nml Nml Nml Left ABD Dig Min Ulnar C8-T1 Nml Nml Nml Nml Nml Left FlexPolLong Median (Ant Int) C7-8 Nml Nml Nml Nml Nml Left Abd Poll Long Radial (Post Int) C7-8 Nml Nml Nml Nml Nml
== END 2025-08-21 09:43 | disposition home or self-care (01) ==
PROVIDERS: PCP Internal Medicine; Visit Provider Nurse Practitioner Adult Health
DX: R20.2 Paresthesia of skin (principal); M54.12 Radiculopathy, cervical region
CPT/HCPCS: 95886; 95911